=== PATIENT | female | born 1955 | race Caucasian/White ===

== ENCOUNTER → 2025-03-28 | Day surgery (SDC) | payer OTHER ==
--- NOTE | 2025-03-28 17:27 | RAD REPORT ---
Exam: Ultrasound guided THYROID NODULE FNA LEFT THYROID NODULE PROCEDURE: Left thyroid nodule FNA. SPECIMEN: 5 - 25-gauge FNA specimens of the left thyroid nodule. TECHNIQUE: Prior to the procedure , the risks and benefits of a thyroid FNA were explained with the patient justin viera consented fully to the procedure. Real-time ultrasound was used to identify the thyroid nodule of interest. The neck was then prepped and draped in the usual sterile fashion. Lidocaine was used to anesthetize the skin and soft tissues down towards the thyroid nodule. 5 separa te 25-gauge needles were then placed using ultrasound guidance into the nodule and specimen was obtained within the needle using a to and fro motion. These needles were placed in solution provided by pathology. The patient tolerated the procedure well without immediate post procedure complication. IMPRESSION: Ultrasound-guided fine-needle aspiration 1.5 cm left thyroid nodule
--- NOTE | 2025-03-28 17:27 | RAD REPORT ---
Exam: Ultrasound-guided THYROID NODULE FNA CLINICAL HISTORY: RIGHT THYROID NODULE PROCEDURE: Right thyroid nodule FNA. SPECIMEN: 5 - 25-gauge FNA specimens of the thyroid nodule. TECHNIQUE: Prior to the procedure , the risks and benefits of a thyroid FNA were explained with the patient justin viera consented fully to the procedure. Real-time ultrasound was used to identify the thyroid nodule of interest. The neck was then prepped and draped in the usual sterile fashion. Lidocaine was used to anesthetize the skin and soft tissues down towards the thyroid nodule. 5 separa te 25-gauge needles were then placed using ultrasound guidance into the nodule and specimen was obtained within the needle using a to and fro motion. These needles were placed in solution provided by pathology. The patient tolerated the procedure well without immediate post procedure complication. IMPRESSION: Ultrasound-guided fine-needle aspiration right thyroid nodule
== END ==
LOC: FNA 08:37
PROVIDERS: ATTEND Otolaryngology
PROC: 0GBG3ZX Excision of Left Thyroid Gland Lobe, Percutaneous Approach, Diagnostic (ICD-10-PCS; principal; 2025-03-28)
PROC: 0GBH3ZX Excision of Right Thyroid Gland Lobe, Percutaneous Approach, Diagnostic (ICD-10-PCS; 2025-03-28)
DX: E04.1 Nontoxic single thyroid nodule (principal)
CPT/HCPCS: 88162